=== PATIENT | female | born 1975 ===

== ENCOUNTER 2021-08-08 14:21 | Outpatient (CLI) | payer OTHER ==
[~2021-08-08 14:21] MED LIST: NEXIUM; PRILOSEC40 MG; ZANTAC300 MG
== END 2021-08-08 14:29 | disposition home or self-care (01) ==
LOC: SONOGRAMA 14:21
PROVIDERS: ATTEND Obstetrics & Gynecology Gynecology
DX: N80.1 Endometriosis of ovary (principal)

== ENCOUNTER 2022-08-07 13:59 | Outpatient (CLI) | payer OTHER | END 2022-08-07 14:05 | disposition home or self-care (01) | LOC: RAD 13:59 | PROVIDERS: ATTEND Physical Medicine & Rehabilitation | DX: M54.2 Cervicalgia (principal) ==